=== PATIENT | female | born 1980 | race Caucasian/White ===

== ENCOUNTER 2022-09-11 07:05 | Outpatient (CLI) | payer OTHER, SELFPAY ==
--- OUTSIDE RECORDS SUMMARY | 2022-09-11 07:08 | XMS_ITS | Clinical Summary ---
:1980 Author Organization [employer] [facility] [place] [address] Care Team Providers Name Role Phone Nancy Zuleta MD Primary Care Provider [phone] Allergies No known active allergies Medications No known medications Active Problems Not on file Family History Medical History Relation Name Comments Allergies Mother Allergies Sister Relation Name Status Comments Mother Sister Social History Tobacco Use Types Packs/Day Years Used Date Never Smoker Smokeless Tobacco: Never Used Tobacco Cessation: Counseling Given: Yes Alcohol Use Standard Drinks/Week Comments Yes 0 (1 standard drink = 0.6 oz pure alcoho l) wine occasionally Alcohol Habits Answer Date Recorded How often do you have a drink containing alcohol? Not asked How many drinks containing alcohol do you have on a Not aske d typical day when you are drinking? How often do you have six or more drinks on one Not asked occasion? Comment: wine occasionally 12/09/2016 Sex Assigned at Date Recorded Not on file Obstetrics History Para Term AB IAB SAB Ectopic Multiple Living Live Births 3 3 3 3 Date Outcome GA Total Labor/2nd/3rd Weight Sex Delivery Anes PTL Leslie A 1 A5 Name Clin Labor Term Term 05/13 Term /2010 Last Filed Vital Signs Vital Sign Reading Time Taken Comments Blood Pressure 110/72 12/09/2016 7:42 AM LANDSCAPER Pulse 73 12/09/2016 7:42 AM LANDSCAPER Temperature 36.9 ??C (98.5 ??F) 12/09/2016 7:42 AM LANDSCAPER Respiratory Rate - - Oxygen Saturation 98% 12/09/2016 7:42 AM LANDSCAPER Inhaled Oxygen Concentration - - Weight 72.2 kg (159 lb 3.2 oz) 12/09/2016 7:42 AM LANDSCAPER Height 177.5 cm (5' 9.88) 12/09/2016 7:42 AM LANDSCAPER Body Mass Index 22.92 12/09/2016 7:42 AM LANDSCAPER Plan of Treatment Health Maintenance Due Date Last Done Comments COVID-19 vaccine series (#1) 1980 Tdap 1989 Depression screening for age 12+ 1990 Hepatitis C screening for age 0704/28/1996 18-79 Tetanus booster 1998 BMI (ht and wt on same day) for 12/09/2017 12/09/2016 age 18+ Pap test for age 21-65 08/21/2021 08/21/2018, 08/21/2018, 06/27/2015, Additional history exists Influenza for age 9-49 06/27/2022 Results Not on filefrom Last 3 Months Insurance Payer Benefit Plan / Subscriber ID Effective Dates Phone Addre ss Type Group [employer] [id number] 2016-[place] [place] [address] Care Teams Supply Chain Generalist Relationship Specialty Start Date End Date Nancy Zuleta MD PCP - General Family Practice 11/08/161999 [place] [address]
--- OUTSIDE RECORDS SUMMARY | 2022-09-11 07:08 | XMS_ITS ---
:1980 Author Care Team Providers Name Role Phone JennygalileoTinaLorene Silvio Primary Care Provider Unavailable Allergies Code Code System Name Reaction Severity Status Onset NKDA ? Medications Name Status Start Date Stop Date ? ? amoxicillin 875 mg tablet Completed ? 2018 Flovent HFA 110 mcg/actuation aerosol inhaler Active ? Not available montelukast 10 mg tablet Active ? Not mickey ilable Ventolin HFA 90 mcg/actuation aerosol inhaler Active ? Not available Problems Name Status Onset Date Source ? Tension-type Headache Active 10/08/2019 ? 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 Neck Pain Active 10/08/2019 ? Myofascial Pain Active 10/08/2019 ? Arthralgia of Temporomandibular Joint Active 10/08/2019 ? Chronic Neck Pain Active 11/15/2019 ? Procedures Date Name Performed by ? 05/13/2011 Caesarean Section Information not avai lable 05/13/2011 Tubal Ligation Information not avai lable 12/23/2006 Caesarean Section Information not avai lable 09/26/2004 Caesarean Section Information not avai lable 10/27/1998 Extraction of Boyd Tooth Information n ot available ? Dilation and Curettage Information not a vailable ? Drug Abuse Worker Surgery Information not avai lable Notes: just had 1 wisdom tooth extract ed Results Lab Results Date Name Specimen Result Interpretation Description Value Range Status Address ? 10/08/2019 Oral Appliance ? Type of maxillary ? ? [place]: Preparation* Appliance stabilization [address], [place] Past Encounters None recorded. Social History Tobacco Smoking Status Never Smoker Vaccine List Vaccine Type influenza, injectable, quadrivalent 09/02/2019 Plan of Care Reminders Provider Appointments None recorded. ? ? Lab None recorded. ? ? Referral None recorded. ? ? Procedures None recorded. ? ? Surgeries None recorded. ? ? Imaging None recorded. ? ? Vitals 11/15/2019 09:00AM FOLLOW UP 30 Height 5 ft 9 in 10/18/2019 01:30PM SPLINT INSERT Height Weight BMI Blood Pressure 5 ft 9 in 155 lbs 22.9 kg/m2 99/62 mm[Hg] 10/08/2019 08:30AM FOLLOW UP 30 Height Weight BMI Blood Pressure 5 ft 9 in 155 lbs 22.9 kg/m2 104/68 mm[Hg] 09/06/2019 02:30PM NEW PATIENT 60 Height Weight BMI Blood Pressure 5 ft 9 in 155 lbs 22.9 kg/m2 114/78 mm[Hg]
--- NOTE | 2022-09-11 07:15 | CRLHL7_ITS ---
For Patients: As a result of the Century Cures Act, medical imaging exams and procedure reports are released immediately into your electronic medical record. You may view this report before your referring provider. If you have questions, please contact your health care provider. INDICATION: SPOTTING POST ABLATION AND RIGHT SIDED PAIN COMPARISON: none TECHNIQUE: 2D riley scale and color Doppler images were acquired of the pelvis using a transabdominal and transvaginal approach. Power Doppler evaluation of the ovaries also performed. FINDINGS: Sonographic images demonstrate a normal size and smooth outer contour of the uterus. Uterus measures 9.7 cm in length by 4.3 cm in AP diameter by 6.2 cm in transverse dimension. The myometrium has a heterogeneous echotexture. Nabothian cysts are present. Small uterine fibroids noted. section scar. Post ablation changes are present to the lower endometrium. The fundal endometrium is thickened and hypervascular measuring 11 millimeters. The endometrium measures 2 millimeters at the lower uterine segment. The right ovary measures 4.7 x 2.1 x 2.9 cm in size and the left ovary measures 6.6 x 2.6 x 4.1 cm.. The ovaries demonstrate normal arterial and venous blood flow on color Doppler analysis. Normal power Doppler evaluation of both ovaries. No evidence of torsion. Multiple small cysts are present within both ovaries. There are no suspicious fluid collections within the cul-de-sac. IMPRESSION: No evidence of ovarian torsion or excess pelvic free fluid. The patient had significant pain during the examination of the right side of the pelvis. Post ablation changes to the lower uterine segment endometrium. The fundal endometrium is thickened and heterogeneous with increased vascularity measuring up to 11 millimeters. Dictated by Uri Becker MD @ 09/11/2022 10:05:41 AM (Electronically Signed)
== END 2022-09-11 07:06 | disposition home or self-care (01) ==
PROVIDERS: PCP Family Medicine; Visit Provider Physician Assistant
DX: R10.2 Pelvic and perineal pain (principal)
CPT/HCPCS: 76830; 76856; 93976

== ENCOUNTER 2022-11-07 08:09 | Outpatient (CLI) | payer OTHER, SELFPAY ==
--- NOTE | 2022-11-07 08:15 | CRLHL7_ITS ---
For Patients: As a result of the Century Cures Act, medical imaging exams and procedure reports are released immediately into your electronic medical record. You may view this report before your referring provider. If you have questions, please contact your health care provider. BILATERAL DIGITAL SCREENING MAMMOGRAM WITH TOMOSYNTHESIS AND COMPUTER-AIDED DETECTION CLINICAL HISTORY: Routine screening exam. COMPARISON: 09/27/2021, 09/27/2020, 09/20/2020, 09/14/2019. TECHNIQUE: Digital mammogram in CC and MLO projections including computer-aided detection (CAD). Tomosynthesis utilized. BREAST COMPOSITION: The breasts are heterogeneously dense, which may obscure small masses. FINDINGS: RIGHT Breast: No suspicious findings. Stable simple cyst behind the RIGHT nipple. LEFT Breast: Post stereotactic biopsy changes are present. Benign calcifications noted. Circumscribed nodular density has developed upper outer quadrant 2 cm from the nipple, probable cyst. IMPRESSION: LEFT breast asymmetry/mass. RECOMMENDATIONS: LEFT breast ultrasound recommended. BI-RADS Category 0: Incomplete: Need Additional Imaging Evaluation and/or Prior Mammograms for Comparison [facility] will contact the patient for follow-up. A lay language report of this examination will be provided to the patient. Dictated by Uri Becker MD @ 11/07/2022 12:05:03 PM [email or web address]/Dictated by: Uri Becker MD @ 11/07/2022 12:05:00 PM (Electronically Signed)
== END 2022-11-07 08:10 | disposition home or self-care (01) ==
LOC: MAMMO 08:10
PROVIDERS: PCP Family Medicine; Visit Provider Family Medicine
DX: Z12.31 Encounter for screening mammogram for malignant neoplasm of breast (principal); R92.2 Inconclusive mammogram
CPT/HCPCS: 77063; 77067

== ENCOUNTER 2022-11-08 14:42 | Outpatient (CLI) | payer OTHER, SELFPAY ==
[2022-11-08 22:01] LABS: Albumin* 4.6 g/dL (3.3-5.0); Chloride* 106 mmol/L (96-114); Sodium* 140 mmol/L (135-149)
[2022-11-08 22:02] LABS: Potassium* 4.1 mmol/L (3.6-5.1)
[2022-11-08 22:04] LABS: Alkaline Phosphatase* 58 U/L (40-150); Aspartate Amino Transferase* 20 U/L (12-35); Bilirubin Total* 0.9 mg/dL (0.1-1.5); Blood Urea Nitrogen* 17 mg/dL (5-24); Carbon Dioxide* 26 mmol/L (20-32); Cholesterol* 173 mg/dL (90-199); Creatinine* 0.7 mg/dL (0.5-1.5); Estimated Glomerular Filt Rate 109 ml/min; Glucose* 89 mg/dL (60-115); Total Protein* 7.3 g/dL (6.0-8.3)
[2022-11-08 22:05] LABS: Alanine Aminotransferase* 16 U/L (4-35); HDL Cholesterol* 83 mg/dL (>=50); LDL Cholesterol Calculated 74 mg/dL (<100); Triglycerides* 80 mg/dL (40-149)
[2022-11-08 22:14] LABS: Vitamin D 25 Hydroxy* 33 ng/mL (30-80)
[2022-11-08 22:27] LABS: TSH With Reflex to FT4* 0.677 uIU/mL (0.270-4.200)
[2022-11-08 22:45] LABS: Hepatitis C Virus Antibody* Negative (Negative)
== END 2022-11-08 14:43 | disposition home or self-care (01) ==
PROVIDERS: PCP Family Medicine; Visit Provider Family Medicine
DX: Z01.419 Encounter for gynecological examination (general) (routine) without abnormal findings (principal); Z83.49 Family history of other endocrine, nutritional and metabolic diseases; Z13.21 Encounter for screening for nutritional disorder; Z11.59 Encounter for screening for other viral diseases; Z13.6 Encounter for screening for cardiovascular disorders
CPT/HCPCS: 80053; 80061; 82306; 84443; 86803

== ENCOUNTER 2022-11-13 08:16 | Outpatient (CLI) | payer OTHER, SELFPAY ==
--- NOTE | 2022-11-13 08:15 | CRLHL7_ITS ---
For Patients: As a result of the Cures Act, medical imaging exams and procedure reports are released immediately into your electronic medical record. You may view this report before your referring provider. If you have questions, please contact your health care provider. LEFT BREAST ULTRASOUND CLINICAL HISTORY: LEFT breast mass/asymmetry. COMPARISON: Mammogram 11/07/2022. TECHNIQUE: Real-time ultrasound imaging of LEFT breast with imaging documentation. FINDINGS: Targeted LEFT breast ultrasound performed. At 12 o`clock 2 cm from the nipple, there is a circumscribed anechoic simple cyst with increased through-transmission measuring 3.6 x 0.9 x 2.3 cm. IMPRESSION: 3.6 cm simple cyst LEFT breast 12 o`clock 2 cm from the nipple. No evidence of malignancy. RECOMMENDATIONS: Annual BILATERAL screening mammography. Results and recommendations were discussed with the patient at the time of the exam. BI-RADS Category 2: Benign A lay language report of this examination will be provided to the patient. Dictated by Uri Becker MD @ 11/13/2022 9:12:17 AM /Dictated by: Uri Becker MD @ 11/13/2022 9:12:00 AM (Electronically Signed)
== END 2022-11-13 08:17 | disposition home or self-care (01) ==
LOC: US 08:16
PROVIDERS: PCP Family Medicine; Visit Provider Family Medicine
DX: N63.20 Unspecified lump in the left breast, unspecified quadrant (principal); R92.8 Other abnormal and inconclusive findings on diagnostic imaging of breast
CPT/HCPCS: 76642

== ENCOUNTER 2022-11-19 12:36 | Day surgery (SDC) | payer OTHER, SELFPAY ==
--- NOTE | 2022-11-19 12:16 | W.ANESCHARGE ---
Anesthesia Charges Start Date/Time Anesthesia Start Date: 11/19/22 Anesthesia Start Time: 13:30 Stop Date/Time Anesthesia Stop Date: 11/19/22 Anesthesia Stop Time: 14:17 Summary Emergency: No
[2022-11-19] MEDS: LACTATED RINGERS 1000 ML 1,000 ML 100 ML IV (12:55)
[2022-11-19 13:04] VITALS: BMI 23.2
[2022-11-19 13:11] LABS: Ur HCG Qualitative* Negative (Negative)
--- NOTE | 2022-11-19 13:21 | SUR.PREOP ---
Patient provided home covid negative results to RN.
[2022-11-19 13:22] VITALS: BP 114/71; PULSE 70; RESP 16; TEMP 36.7; O2SAT 100
[2022-11-19] MEDS: SODIUM CHLORIDE 0.9 % (FLUSH) 10 ML SYRINGE IVF (13:24)
[2022-11-19] MEDS: BUPIVACAINE 0.25% 30 ML 10 ML INJECTION (13:46)
[2022-11-19] MEDS: LIDOCAINE 1% MDV 10 ML INJECTION (13:46)
--- NOTE | 2022-11-19 14:02 | SUR.OPER ---
PATIENT QUESTIONS ANSWERED SATISFACTORILY PREOPERATIVELY. PATIENT BROUGHT TO OR #3 PER CART. Patient positioned supine on OR #3 bed. Pt. then moved into the lithotomy position for the procedure. Final approval of positioning by surgeon.
--- NOTE | 2022-11-19 14:11 | W.PM.GYNPROC ---
Procedure Note Date Seen: 11/19/22 Procedure Details: PREOPERATIVE DIAGNOSIS: 1. Abnormal uterine bleeding 2. History of endometrial ablation and intrauterine synechiae 3. Unsuccessful attempted endometrial biopsy in the clinic POSTOPERATIVE DIAGNOSIS: 1. Abnormal uterine bleeding 2. History of endometrial ablation and intrauterine synechiae 3. Unsuccessful attempted endometrial biopsy in the clinic NAME OF PROCEDURE: 1. Hysteroscopy. 2. D and C. SURGEON: Efrain. ANESTHESIA: Monitored anesthesia care and paracervical block. COMPLICATIONS: None. ESTIMATED BLOOD LOSS: <10 mL. FINDINGS: Stenotic cervix. Significant endometrial the knee bell I obliterating left half of the uterine cavity. Right tubal ostia visualized. PATHOLOGY SPECIMENS: 1. Endometrial curettings. PROCEDURE: After obtaining informed consent, the patient was taken to the operating room where she received monitored anesthesia care. She was prepared and draped in the normal sterile fashion, in the dorsal lithotomy position. An open-sided bivalve speculum was introduced into the vagina and the cervix visualized. The anterior lip of the cervix was grasped with a single-tooth tenaculum for traction. A paracervical block was then administered using a total of 20 mL of a 50/50 mixture of 0.25% Marcaine and 1% lidocaine plain. The cervix was quite stenotic, and I was unable to pass a uterine sound or small Hegar dilator. The hysteroscope was then advanced under direct visualization using sterile normal saline as a distending medium, in order to determine position of the endometrial canal. The cervix was gently then dilated to a #6 Hegar dilator. Sound length was measured and found to be 6.5 cm. A hysteroscope was then advanced under direct visualization through the cervix into the uterine cavity. Sterile normal saline was used as distending medium. The uterine cavity was carefully inspected with the findings noted above. Pictures were taken for documentation purposes. The TruClear morcellator was inserted through the operating channel in the hysteroscope. The morcellator was used to obtain an endometrial sampling of the entire visualized her endometrium. The hysteroscope was then removed. The tenaculum was removed. No active bleeding was noted. All instruments were then removed. The patient tolerated the procedure well. Sponge, lap, needle, and instrument counts reported as correct x2. The patient was taken to the recovery room awake in a stable condition.
[2022-11-19 14:14] VITALS: BP 115/78; PULSE 64; RESP 16; TEMP 36.2; O2SAT 99
--- NOTE | 2022-11-19 14:19 | W.ANESCHARGE ---
Anesthesia Charges Start Date/Time Anesthesia Start Date: 11/19/22 Anesthesia Start Time: 13:30 Stop Date/Time Anesthesia Stop Date: 11/19/22 Anesthesia Stop Time: 14:17 Summary Emergency: No
[2022-11-19 14:30] VITALS: BP 110/72; PULSE 58; RESP 16; O2SAT 100
[2022-11-19 14:45] VITALS: BP 114/77; PULSE 58; RESP 16; O2SAT 100
[2022-11-19 15:00] VITALS: BP 109/80; PULSE 57; RESP 16; O2SAT 100
== END 2022-11-19 15:48 | disposition home or self-care (01) ==
PROVIDERS: PCP Family Medicine; Visit Provider Obstetrics & Gynecology
PROC: 0UDB8ZZ Extraction of Endometrium, Via Natural or Artificial Opening Endoscopic (ICD-10-PCS; CPT 58558; principal; 2022-11-19 12:30)
DX: N93.8 Other specified abnormal uterine and vaginal bleeding (principal)
CPT/HCPCS: 58558; 00952; 81025; 88305; J1885; J2250; J2704; J3010; J3490; J7120

== ENCOUNTER 2023-07-03 16:14 | Emergency (ER) | payer OTHER, SELFPAY ==
[2023-07-03 16:37] VITALS: BP 117/72; PULSE 76; RESP 16; TEMP 36.7; O2SAT 100; BMI 24.4
[2023-07-03] MEDS: OXYCODONE 5 MG TABLET PO (18:08)
[2023-07-03 18:18] LABS: Basophils Absolute Auto 0.03 K/uL (0.00-0.30); Basophils Percent Auto 0.4 % (0.0-3.0); Eosinophils Absolute Auto 0.14 K/uL (0.00-0.50); Eosinophils Percent Auto 1.7 % (0.0-7.0); Hematocrit 42.6 % (33.0-51.0); Hemoglobin* 14.2 gm/dL (12.0-16.0); Immature Granulocytes Abs Auto 0.01 K/uL (0.00-0.30); Immature Granulocytes Pct Auto 0.1 %; Lymphocytes Percent Auto 18.4 % (20-44); Mean Corpuscular HGB Conc 33 gm/dL (32-36); Mean Corpuscular Hemoglobin 30 pg (26-34); Mean Corpuscular Volume 89 fL (80-100); Neutrophils Percent Auto 74.4 % (42.0-72.0); Platelet Count* 224 K/uL (140-440); RDW Coefficient of Variation % 12.8 % (11.5-15.5); Red Blood Count 4.79 m/uL (4.00-5.20); Slide Review Reflex No; White Blood Count* 8.19 K/uL (4.50-11.00)
--- NOTE | 2023-07-03 18:23 | CRLHL7_ITS ---
For Patients: As a result of the Century Cures Act, medical imaging exams and procedure reports are released immediately into your electronic medical record. You may view this report before your referring provider. If you have questions, please contact your health care provider. INDICATION: UMBILICAL ABSCESS AND DIFFUSE ABDOMINAL PAIN. TECHNIQUE: CT abdomen and pelvis acquired with 81 cc Omnipaque 350 IV contrast. COMPARISON: None. FINDINGS: Lower chest: Unremarkable. Liver: Unremarkable. Normal in size and attenuation. No suspicious masses. Gallbladder and bile ducts: Unremarkable. No stones or inflammation. No biliary dilatation. Pancreas: Unremarkable. No mass or inflammation. Spleen: Unremarkable. Normal in size. No masses. Adrenal glands: Unremarkable. No nodules. Kidneys: Unremarkable. No suspicious masses, stones, or hydronephrosis. GI tract: Above-average colonic stool volume. Scattered colonic diverticuli. Appendix is within normal limits. Vasculature: Abdominal aorta is normal in caliber. Mesenteric arteries are patent. Lymph nodes: No lymphadenopathy. Peritoneum/Abdominal Wall: Tiny abscess measuring approximately 1.2 x 0.6 centimeters at the umbilicus with surrounding fat stranding. Pelvis: Right lower quadrant corpus luteal cyst. Bones: Unremarkable for age. IMPRESSION: A tiny umbilical abscess with surrounding inflammatory fat stranding. Otherwise, no acute intra-abdominal process identified. Please note that all CT scans at this facility use dose modulation, iterative reconstruction, and/or weight-based dosing when appropriate to reduce radiation dose to as low as reasonably achievable. Dictated by Bryan Simpson MD @ 07/03/2023 7:27:44 PM (Electronically Signed)
[2023-07-03 18:39] LABS: Chloride* 104 mmol/L (96-114); Potassium* 3.8 mmol/L (3.6-5.1); Sodium* 139 mmol/L (135-149)
[2023-07-03 18:42] LABS: Anion Gap 11 mEq/L (7-15); Blood Urea Nitrogen* 15 mg/dL (5-24); Carbon Dioxide* 24 mmol/L (20-32); Creatinine* 0.8 mg/dL (0.5-1.5); Est. Creatinine Clearance* 92.81; Estimated Glomerular Filt Rate 93 ml/min
[2023-07-03 18:43] LABS: Calcium* 9.5 mg/dL (8.4-10.6); Glucose* 95 mg/dL (60-115)
[2023-07-03 18:57] LABS: HCG Qualitative Serum* Negative (Negative)
--- NOTE | 2023-07-03 19:01 | ED.NURSE ---
Pain has improved.
[2023-07-03 19:07] VITALS: BP 117/83; PULSE 71; RESP 20; TEMP 37.2; O2SAT 100
--- NOTE | 2023-07-03 19:10 | ED_ITS ---
HPI - Abdominal Pain General Date Seen: 07/03/23 Chief Complaint: Abdominal Pain Stated Complaint: stomach infection Time Seen by Provider: 07/03/23 17:46 Source: patient Mode of arrival: ambulatory Limitations: no limitations History of Present Illness HPI narrative: Patient is a 43-year-old female presented emergency department for abdominal pain. She states 2 days ago she started noticing some pain around her umbilicus. She is trying with the primary care provider but was on February 14 states today she started having some discharge in worsening pain around the umbilicus. She went to urgent care and was referred to the emergency department as they did not have any form of imaging available for them. She states she has diffuse abdominal pain but overall is coming from the umbilicus it radiates out. She feels like the pain is superficial. She states started above the umbilicus it is now all around it. There is a scar of the previous umbilical piercing that she states was removed over 20 years ago. Denies fevers, chills, nausea, vomiting weakness, numbness. States she has been eating and drinking without issue. Has had multiple previous abdominal surgeries including and, tubal ligation, hysteroscopy Related Data Home Medications Medication Instructions Recorded Confirmed [id number] 333 mg-133 tab PO DAILY 11/08/22 07/03/23 mg-5 mg tablet cholecalciferol (vitamin D3) 125 5,000 unit PO QDAY 11/08/22 07/03/23 mcg (5,000 unit) capsule Zyrtec 07/03/23 Previous Rx's Medication Instructions Recorded albuterol sulfate 90 mcg/actuation 2 puff inhalation Q6-8H PRN 11/08/22 aerosol inhaler bronchospasm #8.5 grams sertraline 100 mg tablet 100 mg PO QDAY #90 tabs 03/14/23 Allergies Allergy/AdvReac Type Severity Reaction Status Date / Time No Known Drug Allergies Allergy Verified 07/03/23 16:40 Review of Systems Status of ROS Reports: 10 or more systems reviewed and unremarkable except as noted in History and below [facility] Medical History (Updated 07/03/23 @ 19:41 by Rocky Frost DO) Gastroesophageal reflux disease (08/2020) ?K21.9 - Gastro-esophageal reflux disease without esophagitis (ICD-10) Chronic neck pain ?M54.2 - Cervicalgia (ICD-10) ?G89.29 - Other chronic pain (ICD-10) Surgical History (Updated 11/08/22 @ 14:38 by Lorene Huizar MD) History of hysteroscopy (06/12/17) ?Z98.890 - Other specified postprocedural states (ICD-10) H/O varicose vein stripping (2012) ?Z98.890 - Other specified postprocedural states (ICD-10) History of tubal ligation ?Z98.51 - Tubal ligation status (ICD-10) History of endometrial ablation (2011) ?Z98.890 - Other specified postprocedural states (ICD-10) History of dilation and curettage ?Z98.890 - Other specified postprocedural states (ICD-10) History of breast biopsy (03/11/13) ?Z98.890 - Other specified postprocedural states (ICD-10) History of 3 sections ?Z98.891 - History of uterine scar from previous surgery (ICD-10) Family History (Updated 11/08/22 @ 14:40 by Lorene Huizar MD) Mother Anxiety disorder Thyroid disease Sister Anxiety disorder Son Anxiety disorder Asthma Maternal Grandfather Heart disease Thyroid disease Maternal Grandmother Lung cancer Father Parkinson disease Paternal Grandfather Parkinson disease Paternal Grandmother No problems noted. Family/Other Parkinson disease Social History Narrative: Exercises 3 to 4 times per week- cardio and weights , sharma, 3 boys Non-smoker Social drinker- 5 glasses red wine a week Smoking Status: Never smoker How many standard drinks containing alcohol do you have on a typical day: 1 or 2 How often do you have six or more drinks on one occasion: Daily or almost daily AUDIT-C Alcohol total score: 4 Non-prescribed substance use: denies use Caffeine: Yes (2 cups daily) Little interest or pleasure in doing things: not at all Feeling down, depressed, or hopeless: not at all Exam Narrative: Exam Narrative: Const: Well-nourished, Well-developed, in mild distress Eyes: PERRL, no conjunctival injection, and symmetrical lids ENMT: Atraumatic external nose and ears. Moist mucous membranes. Neck: Symmetric, trachea midline, No thyromegaly. CVS: RRR, No murmurs or gallops. Peripheral pulses 2+ and equal in all extremities RESP: Unlabored respiratory effort. Clear to auscultation bilaterally. GI: Induration noted around the umbilicus with a hard nodule felt under the skin., No rebound or guarding. MSK:Extremities w/o deformity, Normal Active ROM Skin: Warm, Dry. No rashes or lesions. Neuro: Normal Muscle tone, No focal neurological deficits. Psych: Awake, Alert, & Oriented x3. Appropriate mood and affect. Const: Vital Signs, click to edit/add: Vital Signs - 24 hr 07/03/23 16:37 07/03/23 19:07 Temperature 98.0 F 99 F Pulse Rate [Left P ulse Oximeter] 76 71 Respiratory Rate 16 20 Blood Pressure [Ri ght Upper Arm] 117/72 117/83 Pulse Oximetry 100 100 Oxygen Delivery Me thod Room Air Room Air Course Vital Signs Vital signs: Initial Vital Signs Temperature 98.0 F 07/03/23 16:37 Temperature Source Temporal Artery Scan 07/03/23 16:37 Pulse Rate 76 07/03/23 16:37 Respiratory Rate 16 07/03/23 16:37 Blood Pressure 117/72 07/03/23 16:37 Blood Pressure Mean 87 07/03/23 16:37 Blood Pressure Position Sitting 07/03/23 16:37 Pulse Oximetry 100 07/03/23 16:37 Oxygen Delivery Method Room Air 07/03/23 16:37 Vital Signs Temperature 98.0 F 07/03/23 16:37 Pulse Rate 76 07/03/23 16:37 Respiratory Rate 16 07/03/23 16:37 Blood Pressure 117/72 07/03/23 16:37 Pulse Oximetry 100 07/03/23 16:37 Oxygen Delivery Method Room Air 07/03/23 16:37 Temperature 99 F 07/03/23 19:07 Pulse Rate 71 07/03/23 19:07 Respiratory Rate 20 07/03/23 19:07 Blood Pressure 117/83 07/03/23 19:07 Pulse Oximetry 100 07/03/23 19:07 Oxygen Delivery Method Room Air 07/03/23 19:07 MDM - Abdominal Pain MDM Narrative Medical decision making narrative: Patient is a 43-year-old female presents emergency department for abdominal pain. She has what appears to be an abscess in her umbilicus. She is tender to palpation in the area and there is some induration there. Initial ultrasound showed a small abscess I tried to drain. I was unsuccessful she says the pain is radiating to her back. To better evaluate this would do CT scan with IV contrast. Also ordered a cbc and CMP showing no concerning abnormalities. CT scan of abdomen and pelvis showed a small 1.2 x 0.6 cm abscess at the umbilicus. This is consistent with her symptoms. Patient be discharged home with Bactrim and oxycodone. She is agreeable to this plan. She is informed to follow-up with a primary care provider if symptoms are improving by Friday. Lab Data Labs: Lab Results 07/03/23 07/03/23 Range/Units 18:12 18:27 WBC 8.19 (4.50-11.00) K/uL RBC 4.79 (4.00-5.20) m/uL Hgb 14.2 (12.0-16.0) gm/dL Hct 42.6 (33.0-51.0) % MCV 89 (80-100) fL MCH 30 (26-34) pg MCHC 33 (32-36) gm/dL RDW Coeff of Jennifer 12.8 (11.5-15.5) % Plt Count 224 (140-440) K/uL Neut % (Auto) 74.4 H (42.0-72.0) % Lymph % (Auto) 18.4 L (20-44) % Owsley % (Auto) 5.0 (0.0-11.0) % Eos % (Auto) 1.7 (0.0-7.0) % Baso % (Auto) 0.4 (0.0-3.0) % Neut # (Auto) 6.10 (1.7-7.0) K/uL Lymph # (Auto) 1.50 (0.90-2.90) K/uL Owsley # (Auto) 0.40 (0.00-0.90) K/UL Eos # (Auto) 0.14 (0.00-0.50) K/uL Baso # (Auto) 0.03 (0.00-0.30) K/uL Abs Immat Gran (auto) 0.01 (0.00-0.30) K/uL Imm/Tot Granulo (auto) 0.1 % Sodium 139 (135-149) mmol/L Potassium 3.8 (3.6-5.1) mmol/L Chloride 104 (96-114) mmol/L Carbon Dioxide 24 (20-32) mmol/L Anion Gap 11 (7-15) mEq/L BUN 15 (5-24) mg/dL Creatinine 0.8 (0.5-1.5) mg/dL Estimated Creat Clear 92.81 Estimated GFR 93 ml/min Glucose 95 (60-115) mg/dL Calcium 9.5 (8.4-10.6) mg/dL HCG, Qual Negative (Negative) Lab Acknowledgement Test Added Discharge Plan Discharge Clinical Impression: Abscess of umbilicus Patient Disposition: Home, Self-Care Condition: Stable Instructions: Abscess (ED) Additional Instructions: Follow-up with your primary care provider on Friday if symptoms not improving. Take Tylenol or ibuprofen for pain. If that is not working can use the oxycodone prescribed. Use Bactrim twice a day for the next 5 days. 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 mxsnwwt-[id number]-dhmj 333-133-5 mg tablet PO DAILY Zyrtec sertraline 100 mg tablet 100 mg PO QDAY Qty: 90 3RF Follow Up/Referrals: Lorene Huizar MD [Primary Care Provider] - Stand Alone Forms: [employer] Info Instructions
--- NOTE | 2023-07-03 19:12 | ED.NURSE ---
Pt report given off to oncoming RN.
== END 2023-07-03 19:50 | disposition home or self-care (01) ==
PROVIDERS: Emergency Provider Student in an Organized Health Care Education/Training Program; PCP Family Medicine
DX: L02.216 Cutaneous abscess of umbilicus (principal)
CPT/HCPCS: 36415; 74177; 80048; 84703; 85025; 99283; 99284; A9270; Q9967

== ENCOUNTER 2023-09-22 06:18 | Outpatient (CLI) | payer OTHER, SELFPAY ==
--- NOTE | 2023-09-22 08:11 | W.ANESCHARGE ---
Anesthesia Charges Start Date/Time Anesthesia Start Date: 09/22/23 Anesthesia Start Time: 07:25 Stop Date/Time Anesthesia Stop Date: 09/22/23 Anesthesia Stop Time: 08:07
--- NOTE | 2023-09-22 10:34 | W.ANESCHARGE ---
Anesthesia Charges Start Date/Time Anesthesia Start Date: 09/22/23 Anesthesia Start Time: 07:25 Stop Date/Time Anesthesia Stop Date: 09/22/23 Anesthesia Stop Time: 08:07
== END 2023-09-22 06:19 | disposition home or self-care (01) ==
LOC: OP CLINIC 06:18
PROVIDERS: PCP Family Medicine; Visit Provider Surgery
DX: Z12.11 Encounter for screening for malignant neoplasm of colon (principal); K63.5 Polyp of colon; K62.1 Rectal polyp
CPT/HCPCS: 00811; 45385; 88305; J2704

== ENCOUNTER 2023-11-18 09:49 | Outpatient (CLI) | payer OTHER, SELFPAY ==
--- OUTSIDE RECORDS SUMMARY | 2023-11-18 09:54 | XMS_ITS | Clinical Summary ---
Author Name Unknown Organization [employer] [facility] Address [place], [place] [address] Care Team Providers Care Clearing House Clerk Name Role Phone Nancy Zuleta MD Primary Care Provider + Allergies No known active allergies Medications No known medications Encounters Date Type Department Care Team Description 09/22/2023 Lab Requisition [facility] [phone] Maribel Pearson MD from Last 3 Months Family History Medical History Relation Name Comments Allergies Mother Allergies Sister Relation Name Status Comments Mother Sister Social History Tobacco Use Types Packs/Day Years Used Date Smoking Tobacco: Never Smokeless Tobacco: Never Tobacco Cessation:Counseling Given: Yes Alcohol Use Standard Drinks/Week Comments Yes 0 (1 standard drink = 0.6 oz pur e alcohol) wine occasionally Sex and Gender Information Value Date Recorded Sex Assigned at Not on file Gender Identity Not on file Sexual Orientation Not on file Obstetrics History Para Term AB IAB SAB Ectopic Multiple Livin g Live Births 3 3 3 3 Date Outcome GA Total Labor Labor/2nd/3rd Weight Sex Delivery Anes PTL Leslie A1 A5 Name Cl in Term Term 05/13 Term Last Filed Vital Signs Vital Sign Reading Time Taken Comments Blood Pressure 110/72 12/09/2016 7:42 AM [facility] [employer] [facility] Pulse 73 12/09/2016 7:42 AM [employer] Temperature 36.9 ??C (98.5 ??F) 12/09/2016 7:42 AM CS T Respiratory Rate - - Oxygen Saturation 98% 12/09/2016 7:42 AM [employer] Inhaled Oxygen Concentration - - Weight 72.2 kg (159 lb 3.2 oz) 12/09/2016 7:42 A M [employer] Height 177.5 cm (5' 9.88) 12/09/2016 7:42 AM CS T Body Mass Index 22.92 12/09/2016 7:42 AM [employer] Plan of Treatment Health Maintenance Due Date Last Done Comments COVID-19 vaccine series (#1) 1978 Tdap 1989 Depression screening for age 12+ 1990 HIV for age 15-65 1993 Hepatitis C screening for age 18-79 1996 Tetanus booster 1998 BMI (ht and wt on same day) for age 18+ 12/09/2017 12/09/2016 Pap test for age 21-65 08/21/2021 8, 08/21/2018, 06/27/2015, Additional history exists Colonoscopy through age 75 2023 Lipids for age 45-75 2023 Mammogram for age 45-75 2023 Influenza for age 9-49 06/27/2023 Pneumococcal series for age 6-64 Aged Out No longer eligible based on patient's age to complete this topic Procedures Procedure Name Priority Date/Time Associated Diagnosis Comments LAB TRACKING EVENT Routine 09/22/2023 7: 40 AM [employer] [employer] PATH TISSUE EXAM Routine 09/22/2023 7:40 AM [employer] from Last 3 Months Results * LAB TRACKING EVENT (09/22/2023 7:40 AM [employer]) Other (Other) Client Collect / Unknown 09/22/2023 7:40 AM [employer] 09/22/2023 9:12 PM [employer] Maribel Pearson MD LAB BILL ONLY [facility] [address] [place] [address], * PATH TISSUE EXAM (09/22/2023 7:40 AM [employer]) Case Report Pathology Report ?Case: [id number] ? Authorizing Provider: ??Maribel Pearson MD ??Collected: ? 09/22/202340 ? Ordering Location: ? [facility] ?Received: ?09/23/202336 ? Pathologist: ? Romie Frey MD ? Specimens: ?? A) - Transverse Colon Polyp ? B) - Sigmoid Polyp ? C) - Rectal Polyp ? 09/24/2023 2:39 PM [facility] [employer] Final Diagnosis A) COLON, TRANSVERSE, POLYPECTOMY: 1. Tubular adenoma 2. Negative for high grade dysplasia 3. Per the colonoscopy report: ?? a. Polyp size: 6 mm ?? b. Resection: Complete ?? c. Retrieval: Complete B) COLON, SIGMOID, POLYPECTOMY: 1. Tubular adenomas (4) and hyperplastic polyps (2) 2. Negative for high grade dysplasia 3. Per the colonoscopy report: ?? a. Polyp size: 4 mm ?? b. Resection: Complete ?? c. Retrieval: Complete C) RECTUM, POLYPECTOMY: 1. Tubulovillous adenoma consistent with an advanced adenoma, and tubular adenoma 2. Negative for high grade dysplasia 3. Per the colonoscopy report: ?? a. Polyp size: 10, 4 mm ?? b. Resection: Complete ?? c. Retrieval: Complete 09/24/2023 2:39 PM [facility] Comment C) Advanced adenoma of the colorectum is defined by the [employer] (ACG) as an adenoma that is 1 cm or more in size, contains an appreciable villous component, or has high grade dysplasia (Dilip Blackmon [2008] Gastroenterology, PMID - [id number]). Patients with advanced adenomas are at an increased risk for synchronous and metachronous additional advanced adenomas. Appropriate follow-up is suggested. 09/24/2023 2:39 PM [facility] Clinical Information Ms. Cintron is a 43 y.o. who presents for screening colonoscopy. 09/24/2023 2:39 PM [facility] [employer] Gross Description A) Received in formalin is a robles mucosal fragment measuring 10 mm in greatest dimension, which is entirely submitted in one cassette. It is labeled with the patient's name and designated transverse colon polyp. B) Received in formalin are 6 robles mucosal fragments ranging from 4 mm to 18 mm in greatest dimension, which are entirely submitted in one cassette. It is labeled with the patient's name and designated colon-sigmoid. C) Received in formalin are 6 robles mucosal fragments ranging from 2 mm to 8 mm in greatest dimension, which are entirely submitted in one cassette. It is labeled with the patient's name and designated colon-rectum. Bonita Nicole 09/23/2023 11:00 AM 09/24/2023 2:39 PM [facility] Microscopic Description The final diagnosis is based on microscopic examination of appropriate sections of all specimens. 09/24/2023 2:39 PM [facility] [employer] [employer] Additional Information Interpreted at [facility], Central Laboratory - [address] [place] [address] [address], [place] [address] 09/24/2023 2:39 PM [employer] Other (Transverse Colon Polyp) 09/22/2023 7:40 AM [employer] 09/23/2023 7:36 AM [employer] Specimen (specimen) (Sigmoid Polyp) 09/22/2023 7:40 AM [employer] 09/23/2023 7:36 AM [employer] Specimen (specimen) (Rectal Polyp ) 09/22/2023 7:40 AM [employer] 09/23/2023 7:36 AM [employer] Maribel Pearson MD PATHOLOGY/[facility]O [facility] [address] [place] [address], from Last 3 Months Care Teams Clearing House Clerk Relationship Specialty Start Date End Date Nancy Zuleta MD [address] [place] [address] PCP - General Family Practice 11/08/16
== END 2023-11-18 09:50 | disposition home or self-care (01) ==
PROVIDERS: PCP Family Medicine; Visit Provider Family Medicine
DX: Z13.220 Encounter for screening for lipoid disorders (principal); Z13.228 Encounter for screening for other metabolic disorders
CPT/HCPCS: 80053; 80061

== ENCOUNTER 2023-11-26 07:31 | Outpatient (CLI) | payer OTHER, SELFPAY ==
--- NOTE | 2023-11-26 07:45 | CRLHL7_ITS ---
For Patients: As a result of the Century Cures Act, medical imaging exams and procedure reports are released immediately into your electronic medical record. You may view this report before your referring provider. If you have questions, please contact your health care provider. BILATERAL DIGITAL DIAGNOSTIC MAMMOGRAM WITH COMPUTER-AIDED DETECTION AND TOMOSYNTHESIS RIGHT BREAST ULTRASOUND CLINICAL HISTORY: RIGHT breast lumps. COMPARISON: 11/07/2022, 09/27/2021. TECHNIQUE: Digital BILATERAL mammogram in 4 projections. Real-time ultrasound imaging of RIGHT breast with imaging documentation. BREAST COMPOSITION: The breasts are heterogeneously dense, which may obscure small masses. FINDINGS: 3D CC/MLO BILATERAL mammogram images submitted. Stable benign calcifications LEFT breast. Unchanged fibrocystic changes LEFT breast. No suspicious masses RIGHT breast without architectural distortion. No adenopathy. Targeted RIGHT breast ultrasound performed in area of concern at 12 o`clock 2 cm from the nipple. Cluster of cysts noted, the largest cyst measures 9 millimeters. IMPRESSION: No suspicious findings. Benign fibrocystic changes RIGHT breast 12 o`clock 2 cm from the nipple. No evidence of malignancy. RECOMMENDATIONS: Annual BILATERAL screening mammography. BI-RADS: 2. Benign. Dictated by Uri Becker MD @ 11/26/2023 1:07:06 PM/khushbu (Electronically Signed)
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
--- OUTSIDE RECORDS SUMMARY | 2023-11-26 07:47 | XMS_ITS | Clinical Summary ---
Author Name Unknown Organization [employer] [facility] Address [place], [place] [address] Care Team Providers Care Outdoor Education Teacher Name Role Phone Nancy Zuleta MD Primary Care Provider + Allergies No known active allergies Medications No known medications Encounters Date Type Department Care Team Description 09/22/2023 Lab Requisition [facility] [phone] Maribel Pearson MD from Last 3 Months [...] Comments Blood Pressure 110/72 12/09/2016 7:42 AM INFORMATION TECHNOLOGY MANAGER Pulse 73 12/09/2016 7:42 AM INFORMATION TECHNOLOGY MANAGER Temperature 36.9 ??C (98.5 ??F) 12/09/2016 7:42 AM CS T Respiratory Rate - - Oxygen Saturation 98% 12/09/2016 7:42 AM INFORMATION TECHNOLOGY MANAGER Inhaled Oxygen Concentration - - Weight 72.2 kg (159 lb 3.2 oz) 12/09/2016 7:42 A M INFORMATION TECHNOLOGY MANAGER Height 177.5 cm (5' 9.88) 12/09/2016 7:42 AM CS T Body Mass Index 22.92 12/09/2016 7:42 AM INFORMATION TECHNOLOGY MANAGER Plan of Treatment Health Maintenance Due Date [...] TRACKING EVENT Routine 09/22/2023 7: 40 AM INFORMATION TECHNOLOGY MANAGER PATH TISSUE EXAM Routine 09/22/2023 7:40 AM INFORMATION TECHNOLOGY MANAGER from Last 3 Months Results * LAB TRACKING EVENT (09/22/2023 7:40 AM INFORMATION TECHNOLOGY MANAGER) Other (Other) Client Collect / Unknown 09/22/2023 7:40 AM INFORMATION TECHNOLOGY MANAGER 09/22/2023 9:12 PM INFORMATION TECHNOLOGY MANAGER Maribel Pearson MD LAB BILL ONLY [facility] [address] [place] [address], * PATH TISSUE EXAM (09/22/2023 7:40 AM INFORMATION TECHNOLOGY MANAGER) Case Report Pathology Report ?Case: [id number] ? Authorizing Provider: ??Maribel Pearson MD ??Collected: ? 09/22/202340 ? Ordering Location: ? [facility] ?Received: ?09/23/202336 ? Pathologist: ? Romie Frey MD ? Specimens: ?? A) - Transverse Colon Polyp ? B) - Sigmoid Polyp ? C) - Rectal Polyp ? 09/24/2023 2:39 PM INFORMATION TECHNOLOGY MANAGER [facility]ORAT[facility] Final Diagnosis [...] ?? c. Retrieval: Complete 09/24/2023 2:39 PM [facility] Comment C) Advanced adenoma of the colorectum is defined by the [employer] (ACG) as an adenoma that is 1 cm or more in size, contains an appreciable villous component, or has high grade dysplasia (Dilip Blackmon [2008] Gastroenterology, PMID - [id number]). Patients with advanced adenomas are at an increased risk for synchronous and metachronous additional advanced adenomas. Appropriate follow-up is suggested. 09/24/2023 2:39 PM [facility] EN[facility]AL LABORATORY Clinical Information Ms. Cintron is a 43 y.o. who presents for screening colonoscopy. 09/24/2023 2:39 PM INFORMATION TECHNOLOGY MANAGER [facility] Gross Description A) Received in [...] Nicole 09/23/2023 11:00 AM 09/24/2023 2:39 PM INFORMATION TECHNOLOGY MANAGER [facility] Microscopic Description The final diagnosis is based on microscopic examination of appropriate sections of all specimens. 09/24/2023 2:39 PM INFORMATION TECHNOLOGY MANAGER [facility] ENTRAL LABORATORY Additional Information Interpreted at [facility], Central Laboratory - [address] [place] [address] S. [facility] [address], [place] [address] 09/24/2023 2:39 PM INFORMATION TECHNOLOGY MANAGER [facility] LAB[facility] Other (Transverse Colon Polyp) 09/22/2023 7:40 AM INFORMATION TECHNOLOGY MANAGER 09/23/2023 7:36 AM INFORMATION TECHNOLOGY MANAGER Specimen (specimen) (Sigmoid Polyp) 09/22/2023 7:40 AM INFORMATION TECHNOLOGY MANAGER 09/23/2023 7:36 AM INFORMATION TECHNOLOGY MANAGER Specimen (specimen) (Rectal Polyp ) 09/22/2023 7:40 AM INFORMATION TECHNOLOGY MANAGER 09/23/2023 7:36 AM INFORMATION TECHNOLOGY MANAGER Maribel Pearson MD PATHOLOGY/CYTOLO GY [facility] [address] [place] [address], from Last 3 Months Care Teams Outdoor Education Teacher Relationship Specialty Start Date End Date Nancy Zuleta MD [address] [place] [address] PCP - General Family Practice 11/08/16
--- NOTE | 2023-11-26 08:15 | CRLHL7_ITS ---
For Patients: As a result of the Century Cures Act, medical imaging exams and procedure reports are released immediately into your electronic medical record. You may view this report before your referring provider. If you have questions, please contact your health care provider. PLEASE SEE BILATERAL DIGITAL DIAGNOSTIC MAMMOGRAM DATED SAME DAY. [facility]/vadim be/Dictated by: Uri Becker MD @ 11/26/2023 1:07:00 PM (Electronically Signed)
== END 2023-11-26 07:32 | disposition home or self-care (01) ==
LOC: MAMMO 07:31
PROVIDERS: PCP Family Medicine; Visit Provider Family Medicine
DX: N63.10 Unspecified lump in the right breast, unspecified quadrant (principal); R92.2 Inconclusive mammogram
CPT/HCPCS: 76642; 77066; G0279

== ENCOUNTER 2024-08-11 10:45 | Outpatient (CLI) | payer OTHER, SELFPAY ==
--- OUTSIDE RECORDS SUMMARY | 2024-08-11 10:47 | XMS_ITS | Clinical Summary ---
Author Organization [employer] [facility] Address [place], [place] [address] Care Team Providers Care Hemmer Automatic Name Role Phone Nancy Zuleta MD Primary Care Provider + Allergies No known active allergies Medications No known medications Family History Medical History Relation Name Comments [...] Outcome GA Total Labor Labor/2nd/3rd Weight Sex Type Anes PTL Leslie A1 A5 Name Clin Term Term 011 Term Last Filed Vital Signs Vital Sign Reading Time Taken Comments Blood Pressure 110/72 12/09/2016 7:42 AM MANAGER E COMMERCE Pulse 73 12/09/2016 7:42 AM MANAGER E COMMERCE Temperature 36.9 ??C (98.5 ??F) 12/09/2016 7:42 AM CS T Respiratory Rate - - Oxygen Saturation 98% 12/09/2016 7:42 AM MANAGER E COMMERCE Inhaled Oxygen Concentration - - Weight 72.2 kg (159 lb 3.2 oz) 12/09/2016 7:42 A M MANAGER E COMMERCE Height 177.5 cm (5' 9.88) 12/09/2016 7:42 AM CS T Body Mass Index 22.92 12/09/2016 7:42 AM MANAGER E COMMERCE Plan of Treatment Health Maintenance Due Date Last Done Comments Tdap 1989 Depression screening for age 12+ 1990 HIV for age 15-65 1993 Hepatitis C screening for age 18-79 1996 Tetanus booster 1998 BMI (ht and wt on same day) for age 18+ 12/09/2017 12/09/2016 Colonoscopy through age 75 2023 Lipids for age 45-75 2023 Mammogram for age 45-75 2023 COVID-19 vaccine series (2023- season) 2024 Influenza for age 9-49 06/27/2024 Pap test for age 21-65 12/08/2026 , 12/08/2023, 08/21/2018, Additional history exists Pneumococcal series for age 6-64 Aged Out No longer eligible based on patient's age to complete this topic Procedures Procedure Name Priority Date/Time Associated Diagnosis Comments HPV HIGH RISK Routine 12/08/2023 1:45 PM MANAGER E [employer]ERCE from Last 3 Months or Most Recently Relevant to Health Maintenance Results * HPV HIGH RISK (12/08/2023 1:45 PM MANAGER E [employer]ERCE) TYPE 16 Negative Negative 12/11/2023 5:24 PM MANAGER E COMMERCE [facility] TYPE 18 Negative Negative 12/11/2023 5:24 PM MANAGER E [employer]ERCE [facility] OTHER HIGH RISK TYPES Negative Negative 12/11/2023 5:24 PM MANAGER E COMMERCE [facility] Other (Cervical) 12/08/2023 1:45 PM MANAGER E [employer]ERCE 12/10/2023 10:27 AM MANAGER E [employer]ERCE Narrative [facility] - 12/11/2023 5:24 PM MANAGER E [employer]ERCE HPV types 16, 18, 31, 33, 35, 39, 45, 51, 52, 56, 58, 59, 66 and 68 DNA were undetectable or below the pre-set threshold. Methodology: [place] [address] 4800 HPV Test Lorene Huizar MD MICROBIOLOGY [facility] [address] [address], from Last 3 Months or Most Recently Relevant to Health Maintenance Care Teams Hemmer Automatic Relationship Specialty Start Date End Date Nancy Zuleta MD [address] [place] [address] PCP - General Family Practice 11/08/16
--- OUTSIDE RECORDS SUMMARY | 2024-08-11 10:47 | XMS_ITS | Data Portability ---
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 Not available 11/15/2019 12:14:21 Plan of Treatment Reminders Order Date Submit Date Provider Last Modified By Organization Details Last Modified Time Details Appointments None recorded. Lab None recorded. Referral neurologis t referral 2018 019 [email or web address] Not available 9 13:32:39 Procedures None recorded. Surgeries None recorded. Imaging None recorded. Medication Orders None recorded. Patient TargetsNo targets recorded. Patient Instructions Encounter Date Encounter Id Patient Instructions Last Modified By Organization Details Last Modified Time 10/08/2019 [id number] oral appliance preparation* Not available 10/08/2019 13:32:26 Reason for Referral Physical Therapist Referral for Myofascial pain Referring Physician: Lorene Zhu, Pain Management, Encounter Date: 09/06/2019 Neurologist Referral for Bernardo fascial pain Botox or acupuncture Referring Physician: Lorene Zhu Pain Management, Encounter Date: 10/08/2019 Results Created Date Observation Date Name Description Value Unit Range Abnormal Flag Note LastModifiedBy Organization Detail LastModifiedTime 10/08/20 19 10/08/2019 oral appli ance prepa ratio n* Type of appliance maxill yenny stabil izatio n applia nce Not Available [facility] [address], [place], [address], 10/08/2019 13:22:46 09/06/20 19 XR, ortho panto gram No observ ation record ed. [email or web address] Not Available 2018 16:11:19 Result Notes None recorded. 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 Procedures Surgical History Date Name Laterality Status Provider Name and Address Organization Details Recorded Time 9 Oral appliance completed Clay Smith [facility] 10/18/2019 14:48:41 9 28701: Therapeutic Exercise completed Jefry Durbin [facility] 10/05/2019 09:35:55 9 15046: Therapeutic Exercise completed Jefry Durbin [facility] 09/21/2019 17:09:50 9 78655: Manual Therapy completed Jefry Durbin [facility] 09/21/2019 17:50:09 9 55131 PT Eval - Low Complexity completed Jefry [facility] 09/13/2019 11:55:00 9 70544: Therapeutic Exercise completed Jefry [facility] 09/13/2019 11:55:03 9 54539: Manual Therapy completed Jefry [facility] 09/13/2019 16:32:17 1 Caesarean Section completed Clay Jonesrenan [facility] 09/06/2019 15:36:01 1 Tubal Ligation completed Clay Jonesrenan [facility] 09/06/2019 15:36:01 7 Caesarean Section completed Clay Robertrenan [facility] 09/06/2019 15:36:01 4 Caesarean Section completed Clay Jonesrenan [facility] 09/06/2019 15:36:01 9 extraction of wisdom tooth completed Clay Jonesrenan [facility] 09/06/2019 15:41:54 Dilation and Curettage completed Clay Jonesrenan [facility] 09/06/2019 15:36:01 Parking Enforcement Manager Surgery completed Clay Jonesrenan [facility] 09/06/2019 [...] Updated DateTime 9 175.26 cm 22.9 kg/m2 50742.8 2 g 67 /min 104 mm[Hg] 68 mm[Hg] Leonoramy Lopez [facility] 9 09:28:24 Date Recorded Body height Body mass index (BMI) Body weight Heart rate Systolic blood pressure Diastolic blood pressure Provider Name and Address Organization Details Last Updated DateTime 9 175.26 cm 22.9 kg/m2 98051.8 2 g 71 /min 99 mm[Hg] 62 mm[Hg] Clay Smith [facility] 9 14:46:12 Date Recorded Body height Provider Name an d Address Organization Details Last Updated DateTime 11/15/2019 175.26 cm Juan C Perea [facility] 11/15/2019 10:07:37 Social History Question Answer Notes LastModified by Organizat ion Details LastModified Time Tobacco Smoking Status Never Smoker Clay Smith [facility] 09/06/2019 [...] Injury? No Information not available 09/06/2019 Sex: Unknown Functional Status Question Answer Note LastModified by Organization D etails LastModified Time What is your exercise level? Moderate Information not available 09/06/2019 Mental Status None recorded. Family History Relationship Description Onset Age of this Age Resolved Age Notes LastModified by Organization Details LastModified Time Father Parkinson's disease [email or web address] Not available 2018 15:40:03 Paternal Grandfather Parkinson's disease [email or web address] Not available 2018 15:40:03 Paternal Grandfather Arthritis [email or web address] Not available 15:40:23 Paternal Grandfather Mental health problem [email or web address] Not available 2018 15:41:12 Paternal Grandmother Arthritis [email or web address] Not available 15:40:23 Maternal Grandmother Family history of malignant neoplasm [email or web address] Not available 2018 15:40:34 Maternal Grandmother Mental health problem [email or web address] Not available 2018 15:41:12 Medical History Condition Response Coronary Artery Disease N Gout N Other N MRSA N Head Trauma/Injury N COPD N Depression N Lung Disease N Glaucoma N Pneumonia N Pacemaker N Obstructive Sleep Apnea N Anxiety Disorder N Muscle, Joint, or Bone Problems Y Autoimmune disease N Vision or Eye Problems N Arthritis N Acid Reflux (GERD) N Cancer N Stroke N Back Injury N High Cholesterol N Liver Disease N Organ Transplant N Rheumatoid Arthritis N Fibromyalgia N Headaches N Kidney Disease N Allergies/Hayfever Y Parkinson's Disease N Post traumatic stress disorder (PTSD) N Migraines N Brain Tumors N Anemia N Multiple Sclerosis N Heart Attack ([place]) N Stomach Ulcers N Diabetes N Bleeding Disorder N Seizures/Epilepsy N Tuberculosis N AIDS/HIV N Dementia N Asthma Y Substance Abuse N Vertigo N Sleep Disorder N Hepatitis N Heart Disease N Neuropathy N Pulmonary Embolism N Hypertension N Osteoporosis N Gynecological HistoryNo gynecological history recorded. Obstetrics History GPAL:G 0 P 0 0 0 0 Immunizations Vaccine Type Date Status Provider Name and Address Organization Details Recorded Time Influenza, split virus, quadrivalent, preservative 09/02/2019 completed MARGRET Snyder - [facility] 09/06/2019 15:38:39 Past Encounters Encounter ID Performer Location Encounter Start Date Encounter Closed Date Diagnosis/Indication Diagnosis SNOMED-CT Code Diagnosis ICD10 Code [id number] Lorene Khalida [facility] [address] [place] [id number] 09/06/2019 15:28:09 09/06/2019 16:40:59 Myofascial pain 609722590 M79.11 M79.12 Neck pain 48852654 M54.2 [id number] Jefry Ross e [address] [place] [id number] 09/13/2019 11:28:11 09/13/2019 16:55:09 Neck pain 23978046 M54.2 [id number] Jefry Ross e [address] [place] [id number] 09/21/2019 16:48:55 09/21/2019 17:45:39 Neck pain 96360456 M54.2 [id number] Jefry Ross e [address] [place] [id number] 10/05/2019 09:34:00 10/05/2019 10:06:05 Neck pain 79748024 M54.2 [id number] Lorene Khalida fier[address] [place] [id number] 10/08/2019 09:25:11 10/08/2019 11:03:39 Tension-type headache 812199257 G44.209 Neck pain 39510067 M54.2 Myofascial pain 59758747 9 M79.11 M79.12 Arthralgia of temporomandibular joint 84744819 M26.629 Articular disc disorder of temporomandibular joint 70166454 M26.631 [id number] Lorene Khalida fier[address] [place] [id number] 10/18/2019 14:23:55 10/19/2019 00:27:43 Articular disc disorder of temporomandibular joint 13001915 M26.631 Arthralgia of temporomandibular joint 15575335 M26.629 Myofascial pain 05012526 9 M79.11 M79.12 [id number] Lorene Khalida fierro [address] [place] [id number] 11/15/2019 10:00:26 11/15/2019 13:55:25 Myofascial pain 414936349 M79.11 M79.12 Arthralgia of temporomandibular joint 07848641 M26.629 Articular disc disorder of temporomandibular joint 84394826 M26.631 Chronic neck pain 125607 2634 107 M54.2 Tension-type headache 39 6611194 G44.209 Health Concerns Section Related Observation LastModified by Organization Detai ls LastModified Time None Recorded Concern Status LastModified by Organization Details LastModified Time None Recorded Advance Directives Directive None Recorded Payers Encounter Date Sequence Insurance Name Policy Number Policy Rodriguez Covered Member ID Rodriguez Member ID Guarantor Name 09/21/2019 1 [facility] Mya Cintron [id number] Alberto Cintron 10/05/2019 1 [employer] Mya Cintron [id number] Alberto Cintron 10/08/[address] [facility] [id number] Alberto Cintron 10/18/[address] [facility] Cintron [id number] Alberto Cintron 11/15/[address] [facility] Cintron [id number] Alberto Cintron Notes Date Note Type Note [...] squatting to keep neck straighter. MARGRET Iglesias [facility] 09/21/2019 17:53:10 [...] squatting to keep neck straighter. MARGRET Iglesias [facility] 10/05/2019 11:12:26 [...] is clenching during the night. MARGRET Owens [facility] 10/08/2019 13:32:29 [...] in neck pain and headaches. Lorene mendez [facility] 10/20/2019 [...] to the chiropractor later today as well. MARGRET Owens - [facility] 11/15/2019 12:14:46 OBGyn Episode No OBEpisode recorded.
--- NOTE | 2024-08-11 11:00 | CRLHL7_ITS ---
For Patients: As a result of the Century Cures Act, medical imaging exams and procedure reports are released immediately into your electronic medical record. You may view this report before your referring provider. If you have questions, please contact your health care provider. Indication: Right upper quadrant pain Technique: Right upper quadrant ultrasound utilizing grayscale and color flow techniques Comparison: CT abdomen and pelvis 07/03/2023 Findings: Pancreas: Partially visualized portions are unremarkable. IVC: Patent by color flow. Abdominal aorta: Visualized portions are normal in caliber. Liver: Normal size and echogenicity. No cysts or masses. Color flow is present within the main portal vein. Gallbladder:, Gallbladder wall no stones thickening or pericholecystic fluid. 3 millimeter echogenicity extends from the gallbladder wall compatible with a tiny gallbladder polyp. Common bile duct: 3 millimeters. Right kidney: Measures 9 centimeters in length and demonstrates normal cortical thickness and echogenicity. 9 millimeter parapelvic cyst is noted. No stones or hydronephrosis. Appropriate color flow. Free fluid: None. Impression: 3 millimeter low risk gallbladder polyp is highly statistically benign and warrants no further imaging. Otherwise, negative study. Dictated by Surinder Duff MD @ 08/12/2024 6:02:17 PM (Electronically Signed)
== END 2024-08-11 10:46 | disposition home or self-care (01) ==
LOC: US 10:45
PROVIDERS: PCP Family Medicine; Visit Provider Family Medicine
DX: R10.11 Right upper quadrant pain (principal); K82.4 Cholesterolosis of gallbladder
CPT/HCPCS: 76705

== ENCOUNTER 2024-09-01 09:17 | Outpatient (CLI) | payer OTHER, SELFPAY ==
--- OUTSIDE RECORDS SUMMARY | 2024-09-01 09:20 | XMS_ITS | Data Portability ---
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 [...] By Organization Details Last Modified Time 10/08/2019 [id number] oral appliance preparation* Not available 10/08/2019 13:32:26 Reason for Referral Neurologist Referral for Bernardo fascial pain Botox or acupuncture Referring Physician: Lorene Zhu, Pain Management, Encounter Date: 10/08/2019 Results Created Date Observation Date Name Description Value Unit Range Abnormal Flag Note LastModifiedBy Organization Detail LastModifiedTime 10/08/2010/08/2019 oral appli ance prepa ratio n* Type of appliance maxill yenny stabil izatio n applia nce Not Available [place] [address] [facility] [address], [place], [address], 10/08/2019:22:46 09/06/20 19 XR, ortho panto gram No observ ation record ed. [email or web address] Not Available 2018 16:11:19 Result Notes None recorded. 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 Procedures Surgical History Date Name Laterality Status Provider Name and Address Organization Details Recorded Time 9 Oral appliance completed Clay Smith [facility] 10/18/2019 14:48:41 9 53890: Therapeutic Exercise completed Jefry Durbin [facility] 10/05/2019 09:35:55 9 32891: Therapeutic Exercise completed Jefry Durbin [facility] 09/21/2019 17:09:50 9 94242: Manual Therapy completed Jefry Durbin [facility] 09/21/2019 17:50:09 9 94517 PT Eval - Low Complexity completed Jefry Durbin [facility] 09/13/2019 11:55:00 9 31381: Therapeutic Exercise completed Jefry Durbin [facility] 09/13/2019 11:55:03 9 90063: Manual Therapy completed Jefry Durbin [facility] 09/13/2019 16:32:17 1 Caesarean Section completed Clay Robertrenan [facility] 09/06/2019 15:36:01 1 Tubal Ligation completed Clay Jonesrenan [facility] 09/06/2019 15:36:01 7 Caesarean Section completed Clay Robertrenan [facility] 09/06/2019 15:36:01 4 Caesarean Section completed Clay Jonesrenan [facility] 09/06/2019 15:36:01 9 extraction of wisdom tooth completed Clay Robertrenan [facility] 09/06/2019 15:41:54 Dilation and Curettage completed Clay Robertrenan [facility] 09/06/2019 15:36:01 Shift Leader Surgery completed Clay Jonesrenan [facility] [...] Updated DateTime 9 175.26 cm 22.9 kg/m2 94965.8 2 g 67 /min 104 mm[Hg] 68 mm[Hg] Leonora Lopez [facility] 9 09:28:24 Date Recorded Body height Body mass index (BMI) Body weight Heart rate Systolic blood pressure Diastolic blood pressure Provider Name and Address Organization Details Last Updated DateTime 9 175.26 cm 22.9 kg/m2 34873.8 2 g 71 /min 99 mm[Hg] 62 mm[Hg] Clay Smith [facility] 9 14:46:12 Date Recorded Body height Provider Name an d Address Organization Details Last Updated DateTime 11/15/2019 175.26 cm Juan C Perea [facility] 11/15/2019 10:07:37 Social History Question Answer Notes LastModified by Organizat ion Details LastModified Time Tobacco Smoking Status Never Smoker Clay Smith [facility] 09/06/2019 15:35:46 [...] History Condition Response Coronary Artery Disease N Other N Gout N MRSA N Head Trauma/Injury N Glaucoma N Lung Disease N Depression N COPD N Pneumonia N Pacemaker N Obstructive Sleep [...] Anemia N Multiple Sclerosis N Heart Attack ([place]) N Stomach Ulcers N Diabetes N Bleeding [...] quadrivalent, preservative 09/02/2019 completed MARGRET Snyder - [facility] 09/06/2019 15:38:39 Past Encounters Encounter ID Performer Location Encounter Start Date Encounter Closed Date Diagnosis/Indication Diagnosis SNOMED-CT Code Diagnosis ICD10 Code [id number] Lorene Barnett [address] [place] [id number] 09/06/2019 15:28:09 09/06/2019 16:40:59 Myofascial pain 882848843 M79.11 M79.12 Neck pain 22835954 M54.2 [id number] Jefry Ross e [address] [place] [id number] 09/13/2019 11:28:11 09/13/2019 16:55:09 Neck pain 26206164 M54.2 [id number] Jefry Ross e [address] [place] [id number] 09/21/2019 16:48:55 09/21/2019 17:45:39 Neck pain 25676496 M54.2 [id number] Jefry Ross e [address] [place] [id number] 10/05/2019 09:34:00 10/05/2019 10:06:05 Neck pain 97558624 M54.2 [id number] Lorene Barnett [address] [place] [id number] 10/08/2019 09:25:11 10/08/2019 11:03:39 Tension-type headache 145988425 G44.209 Neck pain 55946702 M54.2 Myofascial pain 40243469 9 M79.11 M79.12 Arthralgia of temporomandibular joint 31881770 M26.629 Articular disc disorder of temporomandibular joint 96342955 M26.631 [id number] Lorene Barnett [address] [place] [id number] 10/18/2019 14:23:55 10/19/2019 00:27:43 Articular disc disorder of temporomandibular joint 47663181 M26.631 Arthralgia of temporomandibular joint 28410229 M26.629 Myofascial pain 18021222 9 M79.11 M79.12 [id number] Lorene Barnett [address] [place] [id number] 11/15/2019 10:00:26 11/15/2019 13:55:25 Myofascial pain 203029334 M79.11 M79.12 Arthralgia of temporomandibular joint 03429670 M26.629 Articular disc disorder of temporomandibular joint 51661766 M26.631 Chronic neck pain 082252 7797 107 M54.2 Tension-type headache 39 8247540 G44.209 Health Concerns Section Related Observation LastModified by Organization Detai ls LastModified Time None Recorded Concern Status LastModified by Organization Details LastModified Time None Recorded Advance Directives Directive None Recorded Payers Encounter Date Sequence Insurance Name Policy Number Policy Rodriguez Covered Member ID Rodriguez Member ID Guarantor Name 09/21/2019 1 [facility] Mya Cintron [id number] [facility] 10/05/2019 1 [facility] Mya Cintron [id number] [facility] 10/08/2019 1 [facility] Mya Cintron [id number] [facility] 10/18/2019 1 [facility] Mya Cintron [id number] Alberto Cintron 11/15/2019 1 [facility]a [facility] [id number] Alberto Cintron Notes Date Note Type Note [...] [facility] 09/21/2019 17:53:10 [...] if she is clenching during the night. Lorene mendez [facility] 10/08/2019 13:32:29 [...] is resulting in neck pain and headaches. MARGRET Owens [facility] 10/20/2019 [...] later today as well. MARGRET Owens - [facility] 11/15/2019 12:14:46 OBGyn Episode No OBEpisode recorded.
--- OUTSIDE RECORDS SUMMARY | 2024-09-01 09:20 | XMS_ITS | Clinical Summary ---
Author Organization [facility] Address [place], [place] [address] Care Team Providers Care Bed And Breakfast Cook Name Role Phone Nancy Zuleta MD Primary [...] Comments Blood Pressure 110/72 12/09/2016 7:42 AM CURB MACHINE OPERATOR Pulse 73 12/09/2016 7:42 AM CURB MACHINE OPERATOR Temperature 36.9 ??C (98.5 ??F) 12/09/2016 7:42 AM CS T Respiratory Rate - - Oxygen Saturation 98% 12/09/2016 7:42 AM CURB MACHINE OPERATOR Inhaled Oxygen Concentration - - Weight 72.2 kg (159 lb 3.2 oz) 12/09/2016 7:42 A M CURB MACHINE OPERATOR Height 177.5 cm (5' 9.88) 12/09/2016 7:42 AM CS T Body Mass Index 22.92 12/09/2016 7:42 AM CURB MACHINE OPERATOR Plan of Treatment Health Maintenance Due Date [...] HPV HIGH RISK Routine 12/08/2023 1:45 PM CURB MACHINE OPERATOR from Last 3 Months or Most Recently Relevant to Health Maintenance Results * HPV HIGH RISK (12/08/2023 1:45 PM CURB MACHINE OPERATOR) TYPE 16 Negative Negative 12/11/2023 5:24 PM CURB MACHINE OPERATOR [facility] TYPE 18 Negative Negative 12/11/2023 5:24 PM CURB MACHINE OPERATOR [facility] OTHER HIGH RISK TYPES Negative Negative 12/11/2023 5:24 PM CURB MACHINE OPERATOR [facility] Other (Cervical) 12/08/2023 1:45 PM CURB MACHINE OPERATOR 12/10/2023 10:27 AM CURB MACHINE OPERATOR Narrative [facility] - 12/11/2023 5:24 PM CURB MACHINE OPERATOR HPV types 16, 18, 31, 33, 35, 39, 45, 51, 52, 56, 58, 59, 66 and 68 DNA were undetectable or below the pre-set threshold. Methodology: [place] [address] 4800 HPV Test Lorene Huizar MD MICROBIOLOGY [facility] [address] [address], from Last 3 Months or Most Recently Relevant to Health Maintenance Care Teams Bed And Breakfast Cook Relationship Specialty Start Date End Date Nancy Zuleta MD [address] [place] [address] PCP - General Family Practice 11/08/16
== END 2024-09-01 09:18 | disposition home or self-care (01) ==
LOC: LKVREF 09:18
PROVIDERS: PCP Family Medicine; Visit Provider Surgery
DX: R10.11 Right upper quadrant pain (principal)
CPT/HCPCS: 80076

== ENCOUNTER 2024-09-02 09:21 | Outpatient (CLI) | payer OTHER, SELFPAY ==
--- OUTSIDE RECORDS SUMMARY | 2024-09-02 09:26 | XMS_ITS | Clinical Summary ---
Author Organization [employer] [facility] Address [place], [place] [address] Care Team Providers Care Supercharger Repair Supervisor Name Role Phone Nancy Zuleta MD Primary [...] Comments Blood Pressure 110/72 12/09/2016 7:42 AM FOUNDRY WORKER APPRENTICE Pulse 73 12/09/2016 7:42 AM FOUNDRY WORKER APPRENTICE Temperature 36.9 ??C (98.5 ??F) 12/09/2016 7:42 AM CS T Respiratory Rate - - Oxygen Saturation 98% 12/09/2016 7:42 AM FOUNDRY WORKER APPRENTICE Inhaled Oxygen Concentration - - Weight 72.2 kg (159 lb 3.2 oz) 12/09/2016 7:42 A M FOUNDRY WORKER APPRENTICE Height 177.5 cm (5' 9.88) 12/09/2016 7:42 AM CS T Body Mass Index 22.92 12/09/2016 7:42 AM FOUNDRY WORKER APPRENTICE Plan of Treatment Health Maintenance Due Date [...] HPV HIGH RISK Routine 12/08/2023 1:45 PM FOUNDRY WORKER APPRENTICE from Last 3 Months or Most Recently Relevant to Health Maintenance Results * HPV HIGH RISK (12/08/2023 1:45 PM FOUNDRY WORKER APPRENTICE) TYPE 16 Negative Negative 12/11/2023 5:24 PM FOUNDRY WORKER APPRENTICE [facility] TYPE 18 Negative Negative 12/11/2023 5:24 PM FOUNDRY WORKER APPRENTICE [facility] OTHER HIGH RISK TYPES Negative Negative 12/11/2023 5:24 PM FOUNDRY WORKER APPRENTICE [facility] Other (Cervical) 12/08/2023 1:45 PM FOUNDRY WORKER APPRENTICE 12/10/2023 10:27 AM FOUNDRY WORKER APPRENTICE Narrative [facility] - 12/11/2023 5:24 PM FOUNDRY WORKER APPRENTICE HPV types 16, 18, 31, 33, 35, 39, 45, 51, 52, 56, 58, 59, 66 and 68 DNA were undetectable or below the pre-set threshold. Methodology: [place] [address] 4800 HPV Test Lorene Huizar MD MICROBIOLOG[employer] [facility] [address] [place] [address], from Last 3 Months or Most Recently Relevant to Health Maintenance Care Teams Supercharger Repair Supervisor Relationship Specialty Start Date End Date Nancy Zuleta MD [address] [place] [address] PCP - General Family Practice 11/08/16
--- OUTSIDE RECORDS SUMMARY | 2024-09-02 09:26 | XMS_ITS | Data Portability ---
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 [address], [place], [address], 10/08/2019:22:46 09/06/20 19 XR, ortho panto gram No observ ation record ed. [email or web address] Not Available 2018 16:11:19 Result Notes None recorded. 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 Procedures Surgical History Date Name Laterality Status Provider Name and Address Organization Details Recorded Time 9 Oral appliance completed Clay Smith [facility] 10/18/2019 14:48:41 9 83725: Therapeutic Exercise completed Jefry Durbin [facility] 10/05/2019 09:35:55 9 94701: Therapeutic Exercise completed Jefry Durbin [facility] 09/21/2019 17:09:50 9 54918: Manual Therapy completed Jefry Durbin [facility] 09/21/2019 17:50:09 9 43149 PT Eval - Low Complexity completed Jefry Durbin [facility] 09/13/2019 11:55:00 9 04466: Therapeutic Exercise completed Jefry Durbin [facility] 09/13/2019 11:55:03 9 52532: Manual Therapy completed Jefry Durbin [facility] 09/13/2019 16:32:17 1 Caesarean Section completed Clay Robertrenan [facility] 09/06/2019 15:36:01 1 Tubal Ligation completed Clay Jonesrenan [facility] 09/06/2019 15:36:01 7 Caesarean Section completed Clay Robertrenan [facility] 09/06/2019 15:36:01 4 Caesarean Section completed Clay Jonesrenan [facility] 09/06/2019 15:36:01 9 extraction of wisdom tooth completed Clay Robertrenan [facility] 09/06/2019 15:41:54 Dilation and Curettage completed Clay Robertrenan [facility] 09/06/2019 15:36:01 Fagoter Surgery completed Clay Jonesrenan [facility] 09/06/2019 15:36:01 [...] Updated DateTime 9 175.26 cm 22.9 kg/m2 96620.8 2 g 67 /min 104 mm[Hg] 68 mm[Hg] Leonora Lopez [facility] 9 09:28:24 Date Recorded Body height Body mass index (BMI) Body weight Heart rate Systolic blood pressure Diastolic blood pressure Provider Name and Address Organization Details Last Updated DateTime 9 175.26 cm 22.9 kg/m2 17775.8 2 g 71 /min 99 mm[Hg] 62 mm[Hg] Clay Smith [facility] 9 14:46:12 Date Recorded Body height Provider Name an d Address Organization Details Last Updated DateTime 11/15/2019 175.26 cm Juan C Perea [facility] 11/15/2019 10:07:37 Social History Question Answer Notes LastModified by Organizat ion Details LastModified Time Tobacco Smoking Status Never Smoker Clay Smith [facility] 09/06/2019 [...] Gout N MRSA N Head Trauma/Injury N Lung Disease N Glaucoma N Depression N COPD N Pneumonia N Pacemaker N Obstructive Sleep Apnea N Anxiety Disorder N Muscle, Joint, or Bone Problems Y Autoimmune disease N Vision or Eye Problems N Arthritis N Acid Reflux (GERD) N Cancer N Stroke N Back Injury N High Cholesterol N Liver Disease N Organ Transplant N Rheumatoid Arthritis N Headaches N Fibromyalgia N Kidney Disease N Allergies/Hayfever Y Post traumatic stress disorder (PTSD) N Parkinson's Disease N Migraines N Brain Tumors N Anemia N Multiple Sclerosis N Heart Attack ([place]) N Stomach Ulcers N Diabetes N Bleeding [...] quadrivalent, preservative 09/02/2019 completed MARGRET [facility] 09/06/2019 15:38:39 Past Encounters Encounter ID Performer Location Encounter Start Date Encounter Closed Date Diagnosis/Indication Diagnosis SNOMED-CT Code Diagnosis ICD10 Code [id number] Lorene Barnett [address] [place] [id number] 09/06/2019 15:28:09 09/06/2019 16:40:59 Myofascial pain 822391022 M79.11 M79.12 Neck pain 59594387 M54.2 [id number] Jefry Ross e [address] [place] [id number] 09/13/2019 11:28:11 09/13/2019 16:55:09 Neck pain 33251531 M54.2 [id number] Jefry Ross e [address] [place] [id number] 09/21/2019 16:48:55 09/21/2019 17:45:39 Neck pain 15577352 M54.2 [id number] Jefry Ross e [address] [place] [id number] 10/05/2019 09:34:00 10/05/2019 10:06:05 Neck pain 15931708 M54.2 [id number] Lorene Barnett [address] [place] [id number] 10/08/2019 09:25:11 10/08/2019 11:03:39 Tension-type headache 286247950 G44.209 Neck pain 13733559 M54.2 Myofascial pain 41349430 9 M79.11 M79.12 Arthralgia of temporomandibular joint 16538226 M26.629 Articular disc disorder of temporomandibular joint 36659165 M26.631 [id number] Lorene Barnett [address] [place] [id number] 10/18/2019 14:23:55 10/19/2019 00:27:43 Articular disc disorder of temporomandibular joint 93633763 M26.631 Arthralgia of temporomandibular joint 44674060 M26.629 Myofascial pain 52108479 9 M79.11 M79.12 [id number] Lorene Barnett [address] [place] [id number] 11/15/2019 10:00:26 11/15/2019 13:55:25 Myofascial pain 490387089 M79.11 M79.12 Arthralgia of temporomandibular joint 68443873 M26.629 Articular disc disorder of temporomandibular joint 67423767 M26.631 Chronic neck pain 471805 2335 107 M54.2 Tension-type headache 39 6637020 G44.209 Health Concerns Section Related Observation LastModified by Organization Detai ls LastModified Time None Recorded Concern Status LastModified by Organization Details LastModified Time None Recorded Advance Directives Directive None Recorded Payers Encounter Date Sequence Insurance Name Policy Number Policy Rodriguez Covered Member ID Rodriguez Member ID Guarantor Name 09/21/2019 1 [facility] Mya Cintron [id number] [facility] 10/05/2019 1 [facility] Mya Cintron [id number] [facility] 10/08/2019 1 [facility] Mya Cintron [id number] [facility] 10/18/2019 1 [facility] Mya Cintron [id number] Alberto Cintron 11/15/2019 1 [facility] [id number] Alberto Cintron Notes Date Note Type Note [...] squatting to keep neck straighter. Jefry mendez [facility] 09/21/2019 17:53:10 [...] squatting to keep neck straighter. Jefry mendez [facility] 10/05/2019 11:12:26 [...] is clenching during the night. Lorene mendez [facility] 10/08/2019 13:32:29 [...] is resulting in neck pain and headaches. MAGRRET Owens [facility] 10/20/2019 14:20:37 [...] later today as well. MARGRET [facility] 11/15/2019 12:14:46 OBGyn Episode No OBEpisode recorded.
--- NOTE | 2024-09-02 09:30 | CRLHL7_ITS ---
For Patients: As a result of the Century Cures Act, medical imaging exams and procedure reports are released immediately into your electronic medical record. You may view this report before your referring provider. If you have questions, please contact your health care provider. INDICATION: 44-year-old woman presents for assessment of gallbladder function. TECHNIQUE: 5.1 MCi Tc 99m Mebrofenin were administered intravenously and serial static images were obtained over the anterior abdomen over 60 minutes, demonstrating radiotracer uptake within the gallbladder and demonstrating tracer exiting into the small bowel. Subsequently, 1.54 Micrograms cholecystokinin was administered intravenously and the anterior abdomen was serially imaged with static views for another 30 minutes. COMPARISON: Abdominal ultrasound 08/11/2024. FINDINGS: There is normal radionuclide activity in the liver, common bile duct, gallbladder and small bowel. There is no evidence for cystic or common duct obstruction or intrinsic liver disease. After administration of cholecystokinin, tracer is demonstrated exiting the gallbladder into the common bile duct and small bowel. The gallbladder ejection fraction measures 58%. Normal range for GB EF: Equal to or greater than 35%. IMPRESSION: 1. Normal hepatobiliary scan. 2. Gallbladder ejection fraction measures 58%, within normal limits. Dictated by Brian Connelly MD @ 09/02/2024 12:37:14 PM (Electronically Signed)
== END 2024-09-02 09:22 | disposition home or self-care (01) ==
LOC: NM 09:22
PROVIDERS: PCP Family Medicine; Visit Provider Surgery
DX: R10.11 Right upper quadrant pain (principal)
CPT/HCPCS: 78227; A9537; J2805

== ENCOUNTER 2025-02-15 09:59 | Outpatient (CLI) | payer BC, SELFPAY ==
--- NOTE | 2025-02-15 10:15 | CRLHL7_ITS ---
For Patients: As a result of the Century Cures Act, medical imaging exams and procedure reports are released immediately into your electronic medical record. You may view this report before your referring provider. If you have questions, please contact your health care provider. INDICATION: BILATERAL SCREENING MAMMOGRAM, ASYMPTOMATIC 44 F COMPARISON: 11/26/23 DIAGNOSTIC, 11/07/22, 09/27/21 TECHNIQUE: CC and MLO views were obtained. These mammographic images have been obtained using full-field digital technique. These mammographic images were interpreted with the benefit of computer aided detection and tomosynthesis. BREAST COMPOSITION: The breasts are heterogeneously dense, which may obscure small masses. FINDINGS: No suspicious findings. ASSESSMENT: BI-RADS 2 Benign RECOMMENDATION: Annual screening mammogram. A lay language report of this examination will be provided to the patient. Dictated by: Uri Becker MD @ 02/15/2025 10:43:10 (Electronically Signed)
== END 2025-02-15 10:00 | disposition home or self-care (01) ==
LOC: MAMMO 10:00
PROVIDERS: PCP Family Medicine; Visit Provider Family Medicine
DX: Z12.31 Encounter for screening mammogram for malignant neoplasm of breast (principal); R92.333 Mammographic heterogeneous density, bilateral breasts
CPT/HCPCS: 77063; 77067

== ENCOUNTER 2025-04-15 13:28 | Outpatient (CLI) | payer BC, SELFPAY | END 2025-04-15 13:29 | disposition home or self-care (01) | PROVIDERS: PCP Family Medicine; Visit Provider Family Medicine | DX: Z00.00 Encounter for general adult medical examination without abnormal findings (principal); R10.11 Right upper quadrant pain; Z13.6 Encounter for screening for cardiovascular disorders | CPT/HCPCS: 80053; 80061 ==

== ENCOUNTER 2025-10-03 13:27 | Outpatient (CLI) | payer BC, SELFPAY ==
[2025-10-03 15:08] LABS: Bacterial Vaginosis* POSITIVE (Negative); Candida glab/krus NOT DETECTED (No Detected)
== END 2025-10-03 13:28 | disposition home or self-care (01) ==
LOC: NFLDREF 13:27
PROVIDERS: PCP Family Medicine; Visit Provider Obstetrics & Gynecology
DX: N89.8 Other specified noninflammatory disorders of vagina (principal)
CPT/HCPCS: 81513; 87481; 87661

== ENCOUNTER 2025-10-11 07:09 | Outpatient (CLI) | payer BC, SELFPAY ==
--- NOTE | 2025-10-11 07:15 | CRLHL7_ITS ---
For Patients: As a result of the Century Cures Act, medical imaging exams and procedure reports are released immediately into your electronic medical record. You may view this report before your referring provider. If you have questions, please contact your health care provider. CLINICAL HISTORY: Chronic Intermittent Pelvic Pain and Irregular Bleeding COMPARISON: 09/11/2022 TECHNIQUE: 2D riley-scale ultrasound. In addition, color Doppler and spectral Doppler analysis was performed of the pelvis using a transabdominal and transvaginal approach. Transvaginal imaging performed to better visualize the endometrial stripe and ovaries. FINDINGS: Uterine echotexture is heterogeneous. Uterus measures 10.7 x 4.5 x 5.7 cm. Right-sided intramural fibroid is present which measures 2.6 x 2.2 x 2.9 cm. Endometrium is ill-defined and measures 13.7 millimeters. Multiple nabothian cysts are present. The right ovary measures 2.9 x 1.9 x 3.2 cm. In size and the left ovary measures 2.8 x 1.3 x 2.1 cm. The right ovary demonstrates normal arterial and venous blood flow on color Doppler and spectral Doppler analysis. Incomplete Doppler evaluation of the left ovary due to position. There are no suspicious fluid collections within the cul-de-sac. Incidental echogenic focus within the left ovary. Small benign cyst right ovary. IMPRESSION: Ill-defined endometrium measuring 13.7 millimeters. Heterogeneous uterine echotexture with right-sided intramural fibroid measuring 2.9 cm. No suspicious ovarian lesion or adnexal mass. Dictated by Uri Becker MD @ 10/11/2025 9:41:27 AM (Electronically Signed)
== END 2025-10-11 07:10 | disposition home or self-care (01) ==
LOC: US 07:10
PROVIDERS: PCP Family Medicine; Visit Provider Obstetrics & Gynecology
DX: R10.20 Pelvic and perineal pain unspecified side (principal); N92.6 Irregular menstruation, unspecified
CPT/HCPCS: 76830; 76856